=== PATIENT | male | born 1955 | race Caucasian/White ===

== ENCOUNTER 2020-07-29 19:49 | Emergency (ER) | payer MEDICARE, OTHER ==
[~2020-07-29] VITALS: Ht 172.7 cm; Wt 90.9 kg
[2020-07-29] MEDS ORDERED: IOHEXOL 350 MG/ML 100 ML VIAL. IV ONE (20:30)
[2020-07-29] MEDS ORDERED: CONTRAST GIVEN. MC PRN (20:30)
--- NOTE | 2020-07-29 20:38 | RAD ---
PQRS Compliance Statement: One or more of the following individualized dose reduction techniques were utilized for this examinat ion: 1. Automated exposure control 2. Adjustment of the mA and/or kV according to patient size 3. Use of iterative reconstruction technique CT HEAD WITHOUT CONTRAST History: Reason: CODE STROKE, SLURRED SPEECH, facial droop. LT SIDED WEAKNESS, H/O GLIOBLASTOMA Comparison: None. Procedure: Axial images are obtained of the head from the skull base through the vertex without IV co ntrast. Findings: There is old left frontal, temporal, and parietal craniotomy. Deep to the craniotomy there is thicken ing of the dura and a small subdural hematoma containing fat densities. There is no acute blood. The subdural could be subacute. The maximum thickness is 9 mm. There are patchy hypodensities in the post erior right frontal lobe and the right parietal lobe that may be encephalomalacia versus edema. Resid ual tumor cannot be excluded. Correlation with prior imaging would be useful. There are moderate chelsey ventricular white matter hypodensities that may be due to chronic small vessel ischemic disease or ma y be sequela of therapy. There is mild generalized cerebral atrophy. No mass-effect, midline shift, intraparenchymal hemorrhage, or obvious acute infarction is identified . Basilar cisterns are patent. Bone windows demonstrate no acute calvarial abnormality. The visualized paranasal sinuses are clear. Mastoid air cells are well aerated. IMPRESSION: 1. No acute intracranial hemorrhage or evidence of acute infarct. 2. There is right craniotomy. There is underlying dural thickening and small nonacute subdural hemat teri containing fat densities. 3. There are patchy hypodensities of the posterior right frontal lobe and the right parietal lobe th at may be encephalomalacia versus edema. Residual tumor cannot be excluded. 4. Moderate periventricular white matter hypodensities may be due to chronic small vessel ischemic d isease or sequela of therapy. FOR INTERNAL CODING PURPOSES Critical result: Findings discussed with Dr. Gimenez in the ED at 07/29/2020 8:32 PM. RESULT CODE: (C) Electronically signed by: Lopez Morley MD (07/29/2020 8:36 PM) [facility]
--- NOTE | 2020-07-29 20:38 | PHYS DOC ---
Adult General Chief Complaint Chief Complaint: SEIZURE HPI HPI Patient is a 64-year-old male with a past medical history significant for glioblastoma status post 2 years craniotomy and surgical resection as well as chemotherapy and radiation who presents with daughter for chief complaint of seizure activity and concern for stroke. States that her dad is here visiting from [place] for their grandchild's graduation. States that they were at home about 45 minutes before coming to the emergency department and he had a generalized tonic-clonic seizure for about 3 minutes. States he had not had a seizure in a couple years and is taking Keppra, 500 mg twice daily. States that right when he woke up he did seem a little confused and had some left-sided facial droop and was concerned he had a stroke. States he is not on any blood thinners and has never had a heart attack or stroke. Review of Systems Review of Systems Review of systems otherwise unremarkable except noted in HPI Current Medications Current Medications Current Medications Medications (Trade) Dose Ordered Sig/Rahul Start Time Stop Time Status Last Admin Dose Admin Info (Do NOT chart on this entry -- for MONITORING) 1 each PRN DAILY PRN 07/29/20 20:30 07/31/20 20:29 Iohexol (Omnipaque 350 Mg/ml) 75 ml 1X ONCE 07/29/20 20:30 07/29/20 20:31 DC 07/29/20 20:32 75 ML Allergies Allergies Allergies Coded Allergies Type Severity Reaction Last Updated Verified No Known Drug Allergies 07/29/20 No Physical Exam Physical Exam Constitutional: Well developed, well nourished, no acute distress, non-toxic appearance. [] HENT: Normocephalic, atraumatic, bilateral external ears normal, oropharynx moist, no oral exudates, nose normal. [] Eyes: PERRLA, EOMI, conjunctiva normal, no discharge. [] Neck: Normal range of motion, no tenderness, supple, no stridor. [] Cardiovascular:Heart rate regular rhythm, no murmur [] Lungs & Thorax: Bilateral breath sounds clear to auscultation [] Abdomen: Bowel sounds normal, soft, no tenderness, no masses, no pulsatile masses. [] Skin: Warm, dry, no erythema, no rash. [] Back: No tenderness, no CVA tenderness. [] Extremities: No tenderness, no cyanosis, no clubbing, ROM intact, no edema. [] Neurologic: Alert and oriented X 3, normal motor function, normal sensory fun ction, no focal deficits noted. [] Psychologic: Affect normal, judgement normal, mood normal. [] Current Patient Data Lab Results Laboratory Tests Test 07/29/20 19:55 Glucose (Fingerstick) 118 mg/dL (70-99) H EKG EKG [] Radiology/Procedures Radiology/Procedures [] Heart Score C/O Chest Pain: No Risk Factors: Risk Factors: DM, Current or recent (<one month) smoker, HTN, HLP, family history of CAD, obesity. Risk Scores: Risk Factors: DM, Current or recent (<one month) smoker, HTN, HLP, family history of CAD, obesity. Course & Med Decision Making Course & Med Decision Making Patient is a 64-year-old male with a significant past medical history for glioblastoma status post surgery, radiation and chemotherapy who presents after 3 minutes of seizure activity at home Vital signs not concerning. Physical exam noted above. Patient placed on the monitor with IV access established. Patient with second generalized tonic- clonic seizure lasting approximately 2 minutes in the emergency department. Given Versed. Started on IV Keppra. Imaging notable for left MCA clot, small subdural hematoma just under craniotomy site and multiple small hematomas. Discussed all findings with family and recommended admission for continued evaluation and treatment by neurology/neurosurgery. Family requested to be transferred to . Discussed patient with transfer team and neurology service and was accepted to their service by Dr. Manriquze. Discussed this with family who was grateful, verbalized understanding and agreed with plan of transfer and admission. Critical care time 60 minutes Dragon Disclaimer Dragon Disclaimer This electronic medical record was generated, in whole or in part, using a voice recognition dictation system. Departure Departure: Impression: Primary Impression: Stroke Additional Impressions: Subdural hematoma Seizure Disposition: 02 SHORT TERM HOSPITAL Condition: IMPROVED Referrals: PCP,NO (PCP) Problem Qualifiers TY GARCIA MD July 29, 2020 20:38
[2020-07-29 20:58] LABS: BASO % 0 % (0-3); EOS # 0.2 x10^3/uL (0.0-0.7); EOS % 3 % (0-3); HEMATOCRIT 48.2 % (39.0-53.0); HEMOGLOBIN 16.2 g/dL (13.0-17.5); LYMPH # 4.3 x10^3/uL (1.0-4.8); LYMPH % 49 % (24-48); MEAN CORPUSCULAR HEMOGLOBIN 33 pg (25-35); MEAN CORPUSCULAR HGB CONC 34 g/dL (31-37); MEAN CORPUSCULAR VOLUME 97 fL (79-100); MONO % 11 % (0-9); NEUT # 3.3 x10^3uL (1.8-7.7); NEUT % 37 % (31-73); PLATELET COUNT 153 x10^3/uL (140-400); RED BLOOD COUNT 4.98 x10^6/uL (4.30-5.70); RED CELL DISTRIBUTION WIDTH 14.4 % (11.5-14.5); WHITE BLOOD COUNT 8.9 x10^3/uL (4.0-11.0)
[2020-07-29] MEDS ORDERED: IV NORMAL SALINE 100ML 100 ML ONE (21:16)
[2020-07-29] MEDS ORDERED: levETIRAcetam 500 MG/5 ML VIAL IV ONE (21:17)
--- NOTE | 2020-07-29 21:21 | RAD ---
Exam: CTA head and neck INDICATION: Seizure, history of GBM TECHNIQUE: Sequential axial images through the head and neck obtained following the administration of 75 mL of Omni 350 IV contrast. Sagittal and coronal reformatted images were reconstructed from the a xial data and reviewed. Exposure: One or more of the following in the visualized dose reduction techniques were utilized for this examination: 1. Automated exposure control 2. Adjustment of the MA and/or KV according to patient size 3. Use of iterative of reconstructive technique Comparisons: CT head without contrast same day FINDINGS: CTA NECK: Visualized portion of thoracic aorta has a normal course caliber. Standard three-vessel arch anatomy. Right common carotid artery is patent without evidence of stenosis, occlusion or aneurysm. Minimal ca lcified plaque at the origin of the right internal carotid artery without significant stenosis. Left common carotid artery is patent without evidence of stenosis, occlusion or aneurysm. Minimal diana cified plaque at the origin left internal carotid artery without significant stenosis. Right vertebral artery is patent to the basilar confluence without evidence of stenosis, occlusion or aneurysm. Left vertebral artery is patent to basilar confluence without evidence of stenosis, occlusion or aneu rysm. Visualized paraspinal soft tissues are unremarkable. CTA HEAD: Mild calcified plaque at the cavernous segment of the right internal carotid artery without significa nt stenosis. There is occlusion of an M2 branch of the right MCA. Right TC is patent. Mild calcified plaque at the cavernous segment left internal carotid artery without significant steno sis. Left MCA is patent. Left TC is patent. Basilar artery is patent without evidence of stenosis, occlusion or aneurysm. 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 Redemonstration of several hematoma overlying the right frontoparietal craniotomy site. IMPRESSION: 1. 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 2. Minimal calcified plaque at the cavernous segment of the internal carotid arteries without signif icant stenosis. FOR INTERNAL CODING PURPOSES Critical result: Findings discussed with Ammy at 07/29/2020 9:15 PM. RESULT CODE: (C) Electronically signed by: Sy Fulton MD (07/29/2020 9:19 PM) [facility]
[2020-07-29] MEDS ORDERED: MIDAZOLAM HCL PF 5 MG/5 ML VIAL. ONE (21:25)
--- NOTE | 2020-07-29 21:25 | EKG ---
[address] [address] Test Date: 2020-07-29 Test Time: 21:11:12 Pat Name: CAYLA SCHERER Department: Room: Gender: M [employer] Teacher: : 1955 Requested By: TY GARCIA Order Number: [id number] Reading MD: Measurements Intervals [place] Rate: 90 P: 47 MO: 160 QRS: -22 QRSD: 90 T: 44 QT: 360 QTc: 444 Interpretive Statements SINUS RHYTHM ATRIAL PREMATURE COMPLEX(ES) LEFTWARD AXIS OTHERWISE NORMAL ECG RI6.02 Compared to ECG 07/29/2020 21:09:53 No significant changes
[2020-07-29] MEDS ORDERED: MIDAZOLAM HCL PF 5 MG/5 ML VIAL. IV ONE (22:00)
[2020-07-29 22:05] LABS: CALCIUM 9.2 mg/dL (8.5-10.1); CREATININE 1.5 mg/dL (0.7-1.3); GFR 46.8; POTASSIUM 3.8 mmol/L (3.5-5.1)
[2020-07-29 22:11] LABS: ALBUMIN 3.9 g/dL (3.4-5.0); MAGNESIUM 2.2 mg/dL (1.8-2.4); TOTAL BILIRUBIN 0.5 mg/dL (0.2-1.0); TOTAL PROTEIN 7.9 g/dL (6.4-8.2)
[2020-07-29 23:25] VITALS: BP 142/91
== END 2020-07-29 23:28 | disposition short-term general hospital (02) ==
LOC: ER 19:49
DX: S06.5X0A Traumatic subdural hemorrhage without loss of consciousness, initial encounter (principal); X58.XXXA Exposure to other specified factors, initial encounter; Y93.89 Activity, other specified; Y92.89 Other specified places as the place of occurrence of the external cause; Y99.8 Other external cause status
CPT/HCPCS: 36415; 70450; 70496; 70498; 80053; 82947; 83735; 84484; 85025; 85610; 85730; 93005; 96374; 96375; 99291; J1953; J2250; Q9967; 99285-25

== ENCOUNTER → 2020-08-28 | Outpatient (CLI) | payer MEDICARE, OTHER ==
[2020-07-29 23:25] VITALS: BP 142/91
[2020-08-28 16:22] LABS: BASO % 0 % (0-3); EOS # 0.2 x10^3/uL (0.0-0.7); EOS % 2 % (0-3); HEMATOCRIT 42.4 % (39.0-53.0); HEMOGLOBIN 14.3 g/dL (13.0-17.5); LYMPH # 2.1 x10^3/uL (1.0-4.8); LYMPH % 30 % (24-48); MEAN CORPUSCULAR HEMOGLOBIN 33 pg (25-35); MEAN CORPUSCULAR HGB CONC 34 g/dL (31-37); MEAN CORPUSCULAR VOLUME 99 fL (79-100); MONO # 0.7 x10^3/uL (0.0-1.1); MONO % 10 % (0-9); NEUT # 4.1 x10^3uL (1.8-7.7); NEUT % 58 % (31-73); PLATELET COUNT 149 x10^3/uL (140-400); RED CELL DISTRIBUTION WIDTH 14.7 % (11.5-14.5); WHITE BLOOD COUNT 7.1 x10^3/uL (4.0-11.0)
== END ==
LOC: SPEC 15:27
PROVIDERS: ATTEND Internal Medicine Infectious Disease
DX: Z45.2 Encounter for adjustment and management of vascular access device (principal); Z79.2 Long term (current) use of antibiotics
CPT/HCPCS: 36415; 85025

== ENCOUNTER → 2020-08-29 | Outpatient (CLI) | payer MEDICARE, OTHER ==
[2020-08-29 17:35] LABS: ALBUMIN 3.6 g/dL (3.4-5.0); ALBUMIN/GLOBULIN RATIO 1.1 (1.0-1.7); C REACTIVE PROTEIN 39.3 mg/L (0-3.3); CALCIUM 8.3 mg/dL (8.5-10.1); CREATININE 1.3 mg/dL (0.7-1.3); GFR 55.2; POTASSIUM 3.8 mmol/L (3.5-5.1); TOTAL BILIRUBIN 0.2 mg/dL (0.2-1.0)
== END ==
LOC: SPEC 14:20
PROVIDERS: ATTEND Internal Medicine Infectious Disease
DX: G06.0 Intracranial abscess and granuloma (principal)
CPT/HCPCS: 36415; 80053; 86140

== ENCOUNTER → 2020-09-04 | Outpatient (CLI) | payer MEDICARE, OTHER ==
[2020-09-04 08:55] LABS: BASO % 0 % (0-3); EOS # 0.1 x10^3/uL (0.0-0.7); EOS % 1 % (0-3); HEMATOCRIT 39.7 % (39.0-53.0); HEMOGLOBIN 13.5 g/dL (13.0-17.5); LYMPH # 1.5 x10^3/uL (1.0-4.8); LYMPH % 25 % (24-48); MEAN CORPUSCULAR HEMOGLOBIN 32 pg (25-35); MEAN CORPUSCULAR HGB CONC 34 g/dL (31-37); MEAN CORPUSCULAR VOLUME 95 fL (79-100); MONO # 1.3 x10^3/uL (0.0-1.1); MONO % 22 % (0-9); NEUT % 51 % (31-73); PLATELET COUNT 151 x10^3/uL (140-400); RED BLOOD COUNT 4.19 x10^6/uL (4.30-5.70); RED CELL DISTRIBUTION WIDTH 13.8 % (11.5-14.5); WHITE BLOOD COUNT 5.8 x10^3/uL (4.0-11.0)
[2020-09-04 08:58] LABS: ALBUMIN 3.4 g/dL (3.4-5.0); C REACTIVE PROTEIN 140.2 mg/L (0-3.3); CALCIUM 8.5 mg/dL (8.5-10.1); CREATININE 1.1 mg/dL (0.7-1.3); POTASSIUM 4.1 mmol/L (3.5-5.1); TOTAL BILIRUBIN 0.3 mg/dL (0.2-1.0); TOTAL PROTEIN 6.7 g/dL (6.4-8.2)
== END ==
LOC: SPEC 08:29
PROVIDERS: ATTEND Internal Medicine Infectious Disease
DX: Z45.2 Encounter for adjustment and management of vascular access device (principal); N17.9 Acute kidney failure, unspecified
CPT/HCPCS: 36415; 80053; 85025; 86140

== ENCOUNTER → 2020-09-06 | Outpatient (CLI) | payer MEDICARE, OTHER | LOC: LAB 10:32 | PROVIDERS: ATTEND Internal Medicine Infectious Disease | DX: G06.0 Intracranial abscess and granuloma (principal); Z79.2 Long term (current) use of antibiotics | CPT/HCPCS: 87040 ==